=== PATIENT | female | born 1990 | race Caucasian/White ===

== ENCOUNTER 2021-11-23 02:07 | Emergency (ER) | payer OTHER ==
[~2021-11-23] VITALS: Ht 172.7 cm; Wt 106.8 kg
--- NOTE | 2021-11-23 03:02 | PHYS DOC ---
Past History Additional Past Medical Histor: PCOS, SVT, ADHD PTSD Past Surgical History: Other Additional Past Surgical Histo: CARDIAC ABLATION Alcohol Use: Rarely General Adult EDM: Chief Complaint: RAPID HEART RATE HPI: HPI: 31-year-old female presents with palpitations. The patient has a history of SVT with ablation. She has been having palpitations more recently. She is also started on a new medication, Wellbutrin. She wonders if part of her symptoms are side effect. She plans to talk to her doctor about discontinuing this medication. She also had some left-sided chest wall discomfort that radiated up into her neck. This taken with her palpitations made her nervous so she came in to be evaluated. She denies fever or chills. She has been very fatigued lately sleeping more than 14 hours a day last few days. She has no other specific symptoms of illness. Review of Systems: Review of Systems: Constitutional: Denies fever or chills Eyes: Denies change in visual acuity HENT: Denies nasal congestion or sore throat Respiratory: Denies cough or shortness of breath Cardiovascular: Chest pain, palpitations GI: Denies abdominal pain, nausea, vomiting, bloody stools or diarrhea : Denies dysuria Musculoskeletal: Denies back pain or joint pain Integument: Denies rash Neurologic: Denies headache, focal weakness or sensory changes Endocrine: Denies polyuria or polydipsia Lymphatic: Denies swollen glands Psychiatric: Denies depression or anxiety Allergies: Allergies: Allergies Coded Allergies Type Severity Reaction Last Updated Verified metronidazole Allergy Intermediate 11/23/21 Yes Physical Exam: PE: Constitutional: Well developed, well nourished, no acute distress, non-toxic appearance. [] HENT: Normocephalic, atraumatic, bilateral external ears normal, oropharynx moist, no oral exudates, nose normal. [] Eyes: PERRLA, EOMI, conjunctiva normal, no discharge. [] Neck: Normal range of motion, no tenderness, supple, no stridor. [] Cardiovascular:Heart rate regular rhythm, no murmur [] Lungs & Thorax: Bilateral breath sounds clear to auscultation [] Abdomen: Bowel sounds normal, soft, no tenderness, no masses, no pulsatile masses. [] Skin: Warm, dry, no erythema, no rash. [] Back: No tenderness, no CVA tenderness. [] Extremities: No tenderness, no cyanosis, no clubbing, ROM intact, no edema. [] Neurologic: Alert and oriented X 3, normal motor function, normal sensory function, no focal deficits noted. [] Psychologic: Affect normal, judgement normal, mood normal. [] Current Patient Data: Vital Signs: Vital Signs Date Time Temp Pulse Resp B/P (MAP) Pulse Ox O2 Delivery O2 Flow Rate FiO2 11/23/21 02:30 98.3 76 18 122/82 (95) 99 Room Air EKG: EKG: Sinus rhythm, rate 81, normal axis, no ST elevation or depressions. [] Radiology/Procedures: Radiology/Procedures: [] Impressions: EXAM: AP View of the chest DATE: 11/23/2021 3:01 AM INDICATION: Reason: palpitations / Spl. Instructions: / History: COMPARISON: No Prior FINDINGS: The heart is not enlarged. Mediastinal and hilar contours are normal. No focal parenchymal airspace opacity. No pleural effusion or pneumothorax. IMPRESSION: 1. No radiographic evidence for acute cardiopulmonary process. Electronically signed by: Nathan Romero MD (11/23/2021 3:15 AM) [facility] DICTATED AND SIGNED BY: NATHAN ROMERO MD DATE: 11/23/215 CC: JAGRUTI SANTIAGO DO; BELGICA SHEEHAN N ~MTH0 0 Heart Score: C/O Chest Pain: Yes HEART Score for Chest Pain: HEART Score for Chest Pain Response (Comments) Value History Slighlty/Non-Suspicious 0 ECG Normal 0 Age < 45 0 Risk Factors 1 or 2 Risk Factors 1 Troponin < Normal Limit 0 Total 1 Risk Factors: Risk Factors: DM, Current or recent (<one month) smoker, HTN, HLP, family history of CAD, obesity. Risk Scores: Score 0 - 3: 2.5% MACE over next 6 weeks - Discharge Home Score 4 - 6: 20.3% MACE over next 6 weeks - Admit for Clinical Observation Score 7 - 10: 72.7% MACE over next 6 weeks - Early Invasive Strategies Course & Med Decision Making: Course & Med Decision Making Pertinent Labs and Imaging studies reviewed. (See chart for details) The patient's EKG is unremarkable. Her labs are unremarkable. Her troponin is negative. Her chest x-ray is negative for acute findings. She will follow-up with her primary care physician as needed. She is stable for discharge at this time. [] Dragon Disclaimer: Dragon Disclaimer: This electronic medical record was generated, in whole or in part, using a voice recognition dictation system. Departure Departure: Impression: Primary Impression: Palpitations Disposition: 01 HOME / SELF CARE / HOMELESS Condition: STABLE Referrals: BELGICA SHEEHAN (PCP) Patient Instructions: Palpitations, [id number] JAGRUTI SANTIAGO DO Nov 23, 2021 03:02
--- NOTE | 2021-11-23 03:14 | EKG ---
[address] [address] Test Date: 2021-11-23 Test Time: 02:22:33 Pat Name: KD STANTON Department: Room: Gender: F Talkback Host: : 1990 Requested By: JAGRUTI SANTIAGO Order Number: [id number] Reading MD: Ronaldo Ernandez Measurements Intervals [place] Rate: 81 P: 34 VA: 134 QRS: 20 QRSD: 84 T: 24 QT: 348 QTc: 405 Interpretive Statements SINUS RHYTHM NORMAL ECG RI6.02 No previous ECG available for comparison Electronically Signed On 11-23-2021 10:00:37 [employer]ENT INSTALLER by Ronaldo Ernandez
--- NOTE | 2021-11-23 03:18 | RAD ---
EXAM: AP View of the chest DATE: 11/23/2021 3:01 AM INDICATION: Reason: palpitations / Spl. Instructions: / History: COMPARISON: No Prior FINDINGS: The heart is not enlarged. Mediastinal and hilar contours are normal. No focal parenchymal airspace opacity. No pleural effusion or pneumothorax. IMPRESSION: 1. No radiographic evidence for acute cardiopulmonary process. Electronically signed by: Nathan Romero MD (11/23/2021 3:15 AM) JOSE
[2021-11-23 04:13] LABS: BASO % 1 % (0-3); EOS # 0.2 x10^3/uL (0.0-0.7); EOS % 3 % (0-3); HEMOGLOBIN 14.1 g/dL (12.0-15.5); LYMPH # 2.2 x10^3/uL (1.0-4.8); LYMPH % 30 % (24-48); MEAN CORPUSCULAR HEMOGLOBIN 31 pg (25-35); MEAN CORPUSCULAR HGB CONC 33 g/dL (31-37); MEAN CORPUSCULAR VOLUME 92 fL (79-100); MONO # 0.7 x10^3/uL (0.0-1.1); MONO % 9 % (0-9); NEUT # 4.3 x10^3uL (1.8-7.7); NEUT % 58 % (31-73); PLATELET COUNT 240 x10^3/uL (140-400); RED BLOOD COUNT 4.59 x10^6/uL (3.50-5.40); RED CELL DISTRIBUTION WIDTH 13.8 % (11.5-14.5); WHITE BLOOD COUNT 7.4 x10^3/uL (4.0-11.0)
[2021-11-23 04:29] LABS: CALCIUM 8.4 mg/dL (8.5-10.1); CREATININE 0.9 mg/dL (0.6-1.0); POTASSIUM 3.8 mmol/L (3.5-5.1)
[2021-11-23 04:33] LABS: ALBUMIN 3.6 g/dL (3.4-5.0); ALBUMIN/GLOBULIN RATIO 1.2 (1.0-1.7); TOTAL BILIRUBIN 0.2 mg/dL (0.2-1.0); TOTAL PROTEIN 6.6 g/dL (6.4-8.2)
[2021-11-23 05:19] VITALS: BP 111/72
== END 2021-11-23 05:20 | disposition home or self-care (01) ==
LOC: ER 02:07
DX: R00.2 Palpitations (principal); R45.0 Nervousness; R53.83 Other fatigue; Z88.8 Allergy status to other drugs, medicaments and biological substances
CPT/HCPCS: 36415; 71045; 80053; 84484; 85025; 93005; 99285

== ENCOUNTER 2021-12-16 15:11 | Emergency (ER) | payer OTHER ==
[~2021-12-16] VITALS: Ht 172.7 cm; Wt 106.8 kg
--- NOTE | 2021-12-16 15:40 | PHYS DOC ---
Past History Additional Past Medical Histor: PCOS, SVT, ADHD PTSD Past Surgical History: Other Additional Past Surgical Histo: CARDIAC ABLATION Alcohol Use: Rarely Adult General Chief Complaint Chief Complaint: HEADACHE HPI HPI Patient is a 31-year-old female presenting for migraine. Patient has history of this with last suffered several years ago. She has never seen a neurologist due to low frequency of migraine headaches. Reports episode started yesterday without any trauma, mechanism of injury, sick contact or other exposure. Only change in health was recently increased Wellbutrin and recently started BuSpar medications. Migraine is similar to prior episode that is throbbing in nature and focal to frontal lobe area without any changes in motor or sensory or neuro function. Associated symptoms include photophobia and nausea Review of Systems Review of Systems Fourteen body systems of review of systems have been reviewed. See HPI for pertinent positives and negative responses, other rendon all other systems are negative, non-pertinent or non-contributory Allergies Allergies Allergies Coded Allergies Type Severity Reaction Last Updated Verified metronidazole Allergy Intermediate 11/23/21 Yes Physical Exam Physical Exam Constitutional: Well developed, well nourished, no acute distress but appears uncomfortable due to pain, non-toxic appearance. HENT: Normocephalic, atraumatic, bilateral external ears normal, oropharynx moist, no oral exudates, nose normal. Eyes: PERRLA, EOMI, conjunctiva normal, no discharge. Neck: Normal range of motion, no tenderness, supple, no stridor. Cardiovascular: Heart rate regular, sinus rhythm, no murmurs rubs or gallops Lungs & Thorax: Bilateral breath sounds clear to auscultation Abdomen: Bowel sounds normal, soft, no tenderness, no masses, no pulsatile masses. Nonsurgical abdomen, no peritoneal signs Skin: Warm, dry, no erythema, no rash. Back: No tenderness, no CVA tenderness. Extremities: No tenderness, no cyanosis, no clubbing, ROM intact, no edema. Neurologic: Alert and oriented X 3, cranial nerves II through XII intact, normal motor & sensory function, no focal deficits noted. Psychologic: Affect normal, judgement normal, mood normal. Current Patient Data Vital Signs Vital Signs Date Time Temp Pulse Resp B/P (MAP) Pulse Ox O2 Delivery O2 Flow Rate FiO2 12/16/21 15:28 98.3 89 16 139/94 (109) 98 Room Air EKG EKG [] Radiology/Procedures Radiology/Procedures [] Heart Score C/O Chest Pain: No Risk Factors: Risk Factors: DM, Current or recent (<one month) smoker, HTN, HLP, family history of CAD, obesity. Risk Scores: Risk Factors: DM, Current or recent (<one month) smoker, HTN, HLP, family history of CAD, obesity. Course & Med Decision Making Course & Med Decision Making ABCs unremarkable HPI and comprehensive physical exam nonconcerning for any emergent or surgical issues No indication for further diagnostic ER workup, intervention, or hospitalization at this time Patient symptoms nearly completely resolved with provided ER intervention. No nuchal rigidity or meningeal sign requiring further investigation or concern for SAH, meningitis etc. Joint decision made to discharge home with continued supportive care and PCP follow-up Mirta Disclaimer Mirta Disclaimer This electronic medical record was generated, in whole or in part, using a voice recognition dictation system. Departure Departure: Impression: Primary Impression: Migraine Disposition: HOME / SELF CARE / HOMELESS Condition: IMPROVED Referrals: BELGICA SHEEHAN (PCP) Additional Instructions: You were seen for a headache. Your symptoms improved with an NSAID and an anti- nausea medication and gentle fluid hydration. You should return to the ED if you develop worsening pain, vision change, numbness, tingling, weakness, vomiting, fever, neck pain, or any other new or concerning symptoms. You need to follow up with your primary care physician for further evaluation and treatment CRISTAL WEAVER DO Dec 16, 2021 15:40
[2021-12-16] MEDS ORDERED: KETOROLAC 15 MG/ML VIAL. IVP ONE (15:45)
[2021-12-16] MEDS ORDERED: PROCHLORPERAZINE 10 MG/2 ML VIAL. IV ONE (15:45)
[2021-12-16] MEDS ORDERED: diphenhydrAMINE 50 MG/ML VIAL IVP ONE (15:45)
[2021-12-16] MEDS ORDERED: IV NORMAL SALINE 1,000ML 1,000 ML IV ONE (15:45)
[2021-12-16 16:13] VITALS: BP 141/95
== END 2021-12-16 17:19 | disposition home or self-care (01) ==
LOC: ER 15:11
DX: G43.909 Migraine, unspecified, not intractable, without status migrainosus (principal); Z88.8 Allergy status to other drugs, medicaments and biological substances
CPT/HCPCS: 96361; 96374; 96375; 99284; J0780; J1200; J1885; J7030